=== PATIENT | male | born 1955 | race Caucasian/White ===

== ENCOUNTER 2017-07-29 09:48 | Inpatient (IN) | payer MEDICAID ==
[~2017-07-29] VITALS: Ht 167.6 cm; Wt 122.5 kg
[~2017-07-29 09:48] MED LIST: CITA40TA12 PO; LANS15CA60 PO; MULT-26 PO; NAPR220C PO; ONDA4TAB10 PO; VERA40TA PO
[2017-07-29 10:25] LABS: MEAN CORPUSCULAR HEMOGLOBIN 23.1 pg (27.5-34.5); MEAN CORPUSCULAR HGB CONC 33.1 g/dL (33.2-36.2); MEAN CORPUSCULAR VOLUME 69.6 fL (81-97); PLATELET COUNT 517 x10^3/uL (130-400); RED CELL DISTRIBUTION WIDTH 19.3 % (9.4-14.8)
[2017-07-29 10:28] LABS: INTERNATIONAL NORMALIZED RATIO 1.14 (0.93-1.1); PROTHROMBIN TIME 11.8 Seconds (9.6-11.5)
[2017-07-29 10:31] LABS: ALANINE AMINOTRANSFERASE 54 U/L (12-78); ALBUMIN 2.1 g/dL (3.4-5.0); ANION GAP 10 mmol/L (5-15); CALCIUM 7.3 mg/dL (8.5-10.1); CHLORIDE 99 mmol/L (98-107); CREATININE 2.47 mg/dL (0.7-1.3)
[2017-07-29 10:35] LABS: ALKALINE PHOSPHATASE 140 U/L (45-117); BILIRUBIN,TOTAL 0.4 mg/dL (0.2-1.0); TOTAL PROTEIN 8.5 g/dL (6.4-8.2)
[2017-07-29 11:17] LABS: BASOPHILS % (AUTO) 0 % (0-1); EOSINOPHILS # (AUTO) 0.12 x10^3/uL (0-0.4); EOSINOPHILS % (AUTO) 1 % (1-7); LYMPHOCYTES # (AUTO) 3.18 x10^3/uL (1-3.4); LYMPHOCYTES % (AUTO) 16 % (22-44); MD SCAN; MONOCYTES # (AUTO) 0.64 x10^3/uL (0.2-0.8); MONOCYTES % (AUTO) 3 % (2-9); NEUTROPHILS % (AUTO) 80 % (42-75)
[2017-07-29] MEDS ORDERED: VANCOMYCIN PER PHARMACY MC PRN (11:30)
[2017-07-29] MEDS ORDERED: SODIUM CHLORIDE 0.9% 1,000ML IVBOLUS ONE ×2 (11:30→12:00)
[2017-07-29] MEDS ORDERED: VANCOMYCIN 2,000 MG in SODIUM CHLORIDE 0.9% 500 ML IV ONE (12:00)
[2017-07-29] MEDS ORDERED: CLINDAMYCIN PMX 600MG/50ML 50 ML IV ONE (12:00)
[2017-07-29 12:58] LABS: TROPONIN I < 0.015 ng/mL (0.000-0.045)
[2017-07-29] MEDS ORDERED: PHARMACY MAY ADJ FOR RENAL FX MC PRN (13:30)
[2017-07-29] MEDS ORDERED: HYDROmorphone 2 MG/ML, 1ML IVPush PRN (13:30)
[2017-07-29] MEDS ORDERED: ACETAMINOPHEN 325 MG TABLET PO PRN (13:30)
[2017-07-29] MEDS ORDERED: DOCUSATE 100 MG CAPSULE PO PRN (13:30)
[2017-07-29] MEDS ORDERED: BISACODYL 10 MG SUPP PR PRN (13:30)
[2017-07-29] MEDS ORDERED: LABETALOL 5MG/ML, 20ML IVPush PRN (13:30)
[2017-07-29] MEDS ORDERED: hydrALAzine 20 MG/ML, 1ML IVPush PRN (13:30)
[2017-07-29] MEDS ORDERED: POLYETHYLENE GLYCOL 17 GM PACKET PO PRN (13:30)
[2017-07-29] MEDS ORDERED: ONDANSETRON 2MG/ML, 2ML IVPush PRN (13:30)
[2017-07-29 13:59] VITALS: BP 116/72
[2017-07-29 14:48] LABS: MICROSCOPIC NOT IND
[2017-07-29 14:50] LABS: CULTURE INDICATED? NO
[2017-07-29 14:55] LABS: HCT (SEDRATE) 25.8 % (39.2-51.8)
[2017-07-29 14:57] LABS: CREATININE,URINE RANDOM 43.5 mg/dL
[2017-07-29] MEDS: LINEZOLID PMX 600MG/300ML 300 ML IV SCH (15:59)
[2017-07-29] MEDS: POTASSIUM CHLORIDE 20 MEQ PACKET PO SCH (17:30)
[2017-07-29] MEDS: NICOTINE 14MG/24 HR PATCH.TD24 TD SCH (17:30)
[2017-07-29] MEDS: HEPARIN 5,000 UNITS/ML, 1ML SQ SCH (17:31)
[2017-07-29 19:07] VITALS: BP 94/55
[2017-07-29] MEDS: AMPICILLIN/SULBACTAM 3 GM in SODIUM CHLORIDE 0.9% 100 ML IV SCH (19:53)
[2017-07-29] MEDS: LACTATED RINGERS 1,000 ML IV SCH (20:49)
[2017-07-30 00:27] VITALS: BP 102/61
[2017-07-30] MEDS: HEPARIN 5,000 UNITS/ML, 1ML SQ SCH ×3 (01:35→16:36)
[2017-07-30] MEDS: AMPICILLIN/SULBACTAM 3 GM in SODIUM CHLORIDE 0.9% 100 ML IV SCH ×4 (01:35→22:28)
[2017-07-30] MEDS: LINEZOLID PMX 600MG/300ML 300 ML IV SCH ×2 (03:53→16:00)
[2017-07-30] MEDS: HYDROcodone/APAP 5/325 TABLET PO PRN ×4 (03:53→22:29)
[2017-07-30 05:18] LABS: BASOPHILS # (AUTO) 0.05 x10^3/uL (0-0.1); BASOPHILS % (AUTO) 0 % (0-1); EOSINOPHILS # (AUTO) 0.13 x10^3/uL (0-0.4); EOSINOPHILS % (AUTO) 1 % (1-7); LYMPHOCYTES # (AUTO) 0.59 x10^3/uL (1-3.4); LYMPHOCYTES % (AUTO) 5 % (22-44); MD NO; MEAN CORPUSCULAR HEMOGLOBIN 22.3 pg (27.5-34.5); MEAN CORPUSCULAR HGB CONC 32.2 g/dL (33.2-36.2); MEAN CORPUSCULAR VOLUME 69.2 fL (81-97); MEAN PLATELET VOLUME 7.8 fL (7.4-10.4); MONOCYTES # (AUTO) 0.66 x10^3/uL (0.2-0.8); MONOCYTES % (AUTO) 6 % (2-9); NEUTROPHILS # (AUTO) 10.38 x10^3/uL (1.8-6.8); NEUTROPHILS % (AUTO) 88 % (42-75); PLATELET COUNT 434 x10^3/uL (130-400); RED BLOOD COUNT 3.41 x10^6/uL (4.38-5.82); RED CELL DISTRIBUTION WIDTH 19.2 % (9.4-14.8)
[2017-07-30 05:26] LABS: ALBUMIN 1.6 g/dL (3.4-5.0); ANION GAP 6 mmol/L (5-15); CALCIUM 7.2 mg/dL (8.5-10.1); CHLORIDE 110 mmol/L (98-107)
[2017-07-30 05:29] LABS: ALANINE AMINOTRANSFERASE 41 U/L (12-78); ALKALINE PHOSPHATASE 134 U/L (45-117); BILIRUBIN,TOTAL 0.4 mg/dL (0.2-1.0); CREATININE 1.36 mg/dL (0.7-1.3); TOTAL PROTEIN 7.3 g/dL (6.4-8.2)
[2017-07-30 08:08] VITALS: BP 109/67
[2017-07-30 12:53] VITALS: BP 96/59
[2017-07-30] MEDS: LACTATED RINGERS 1,000 ML IV SCH (14:34)
[2017-07-30] MEDS: POTASSIUM CHLORIDE 20 MEQ PACKET PO SCH (16:36)
[2017-07-30] MEDS: NICOTINE 14MG/24 HR PATCH.TD24 TD SCH (16:37)
[2017-07-30 19:45] VITALS: BP 107/67
[2017-07-31 01:00] VITALS: BP 108/65
[2017-07-31] MEDS: HEPARIN 5,000 UNITS/ML, 1ML SQ SCH ×3 (01:26→17:30)
[2017-07-31] MEDS: LACTATED RINGERS 1,000 ML IV SCH ×2 (01:26→12:00)
[2017-07-31] MEDS: HYDROcodone/APAP 5/325 TABLET PO PRN ×2 (04:05→14:58)
[2017-07-31] MEDS: AMPICILLIN/SULBACTAM 3 GM in SODIUM CHLORIDE 0.9% 100 ML IV SCH ×3 (04:05→21:09)
[2017-07-31] MEDS: LINEZOLID PMX 600MG/300ML 300 ML IV SCH ×2 (04:34→17:35)
[2017-07-31 07:03] VITALS: BP 112/70
[2017-07-31] MEDS ORDERED: PHARMACY MAY ADJ FOR RENAL FX MC PRN (11:30)
[2017-07-31 11:49] LABS: BASOPHILS # (AUTO) 0.08 x10^3/uL (0-0.1); BASOPHILS % (AUTO) 1 % (0-1); EOSINOPHILS # (AUTO) 0.22 x10^3/uL (0-0.4); EOSINOPHILS % (AUTO) 2 % (1-7); LYMPHOCYTES # (AUTO) 0.76 x10^3/uL (1-3.4); LYMPHOCYTES % (AUTO) 8 % (22-44); MD NO; MEAN CORPUSCULAR HEMOGLOBIN 22.1 pg (27.5-34.5); MEAN CORPUSCULAR HGB CONC 31.9 g/dL (33.2-36.2); MEAN CORPUSCULAR VOLUME 69.3 fL (81-97); MONOCYTES # (AUTO) 0.53 x10^3/uL (0.2-0.8); MONOCYTES % (AUTO) 6 % (2-9); NEUTROPHILS # (AUTO) 8.11 x10^3/uL (1.8-6.8); NEUTROPHILS % (AUTO) 84 % (42-75); PLATELET COUNT 561 x10^3/uL (130-400); RED BLOOD COUNT 3.46 x10^6/uL (4.38-5.82); RED CELL DISTRIBUTION WIDTH 19.7 % (9.4-14.8)
[2017-07-31 11:58] LABS: CALCIUM 7.2 mg/dL (8.5-10.1); CHLORIDE 107 mmol/L (98-107)
[2017-07-31] MEDS ORDERED: PERMETHRIN CRM 5%, 60GM TP SCH (12:00)
[2017-07-31 12:04] LABS: ANION GAP 7 mmol/L (5-15); CREATININE 1.03 mg/dL (0.7-1.3)
[2017-07-31 12:05] LABS: ALANINE AMINOTRANSFERASE 34 U/L (12-78); ALBUMIN 1.6 g/dL (3.4-5.0); ALKALINE PHOSPHATASE 123 U/L (45-117); BILIRUBIN,TOTAL 0.5 mg/dL (0.2-1.0); TOTAL PROTEIN 7.6 g/dL (6.4-8.2)
[2017-07-31] MEDS: FOLIC ACID 1 MG TABLET PO SCH (12:51)
[2017-07-31] MEDS: MULTIVIT.W/IRON, MINERALS ORAL SOL PO SCH (12:51)
[2017-07-31] MEDS: THIAMINE 100MG TABLET PO SCH (12:51)
[2017-07-31 13:42] VITALS: BP 119/73
[2017-07-31] MEDS ORDERED: PIPERONYL BUTOXIDE/PYRETHRINS SHAMPOO TP SCH (16:30)
[2017-07-31] MEDS: NICOTINE 14MG/24 HR PATCH.TD24 TD SCH (17:30)
[2017-07-31 20:30] VITALS: BP 112/70
[2017-08-01] MEDS: HYDROcodone/APAP 5/325 TABLET PO PRN (01:18)
[2017-08-01] MEDS: HEPARIN 5,000 UNITS/ML, 1ML SQ SCH ×3 (01:18→17:29)
[2017-08-01 01:21] VITALS: BP 121/76
[2017-08-01] MEDS: AMPICILLIN/SULBACTAM 3 GM in SODIUM CHLORIDE 0.9% 100 ML IV SCH ×4 (03:49→23:55)
[2017-08-01] MEDS: LINEZOLID PMX 600MG/300ML 300 ML IV SCH ×2 (04:37→16:22)
[2017-08-01 05:03] LABS: BASOPHILS # (AUTO) 0.02 x10^3/uL (0-0.1); BASOPHILS % (AUTO) 0 % (0-1); EOSINOPHILS # (AUTO) 0.25 x10^3/uL (0-0.4); EOSINOPHILS % (AUTO) 2 % (1-7); LYMPHOCYTES # (AUTO) 0.93 x10^3/uL (1-3.4); LYMPHOCYTES % (AUTO) 9 % (22-44); MD NO; MEAN CORPUSCULAR HEMOGLOBIN 21.9 pg (27.5-34.5); MEAN CORPUSCULAR HGB CONC 31.4 g/dL (33.2-36.2); MEAN CORPUSCULAR VOLUME 69.7 fL (81-97); MEAN PLATELET VOLUME 7.3 fL (7.4-10.4); MONOCYTES % (AUTO) 5 % (2-9); NEUTROPHILS # (AUTO) 8.83 x10^3/uL (1.8-6.8); NEUTROPHILS % (AUTO) 84 % (42-75); PLATELET COUNT 600 x10^3/uL (130-400); RED BLOOD COUNT 3.57 x10^6/uL (4.38-5.82); RED CELL DISTRIBUTION WIDTH 19.2 % (9.4-14.8)
[2017-08-01 05:18] LABS: CHLORIDE 107 mmol/L (98-107)
[2017-08-01 05:34] LABS: % IRON SATURATION 11 % (20-55); ALANINE AMINOTRANSFERASE 27 U/L (12-78); ALBUMIN 1.6 g/dL (3.4-5.0); ALKALINE PHOSPHATASE 104 U/L (45-117); ANION GAP 9 mmol/L (5-15); BILIRUBIN,TOTAL 0.4 mg/dL (0.2-1.0); CALCIUM 7.3 mg/dL (8.5-10.1); CREATININE 0.91 mg/dL (0.7-1.3); IRON LEVEL 33 mcg/dL (65-175); TOTAL IRON BINDING CAPACITY 310 mcg/dL (250-450); TOTAL PROTEIN 7.6 g/dL (6.4-8.2); TRANSFERRIN 144 mg/dL (200-360)
[2017-08-01 08:13] VITALS: BP 124/79
[2017-08-01] MEDS: FOLIC ACID 1 MG TABLET PO SCH (09:09)
[2017-08-01] MEDS: THIAMINE 100MG TABLET PO SCH (09:09)
[2017-08-01] MEDS: MULTIVIT.W/IRON, MINERALS ORAL SOL PO SCH (09:10)
[2017-08-01] MEDS ORDERED: FUROSEMIDE 20 MG/2 ML IV ONE (12:00)
[2017-08-01] MEDS ORDERED: IBUPROFEN 200 MG TABLET PO PRN (12:00)
[2017-08-01] MEDS: FERROUS SULFATE 325 MG TABLET PO SCH ×2 (12:33→23:55)
[2017-08-01 13:36] VITALS: BP 127/83
[2017-08-01 17:02] LABS: OCCULT BLOOD NEGATIVE (NEGATIVE)
[2017-08-01] MEDS: NICOTINE 14MG/24 HR PATCH.TD24 TD SCH (17:29)
[2017-08-01 19:29] VITALS: BP 132/75
[2017-08-02 00:41] VITALS: BP 139/84
[2017-08-02] MEDS: HEPARIN 5,000 UNITS/ML, 1ML SQ SCH ×3 (00:50→16:39)
[2017-08-02] MEDS: HYDROcodone/APAP 5/325 TABLET PO PRN (00:50)
[2017-08-02] MEDS: LINEZOLID PMX 600MG/300ML 300 ML IV SCH ×2 (04:40→16:39)
[2017-08-02 05:49] LABS: BASOPHILS # (AUTO) 0.04 x10^3/uL (0-0.1); BASOPHILS % (AUTO) 0 % (0-1); EOSINOPHILS # (AUTO) 0.27 x10^3/uL (0-0.4); EOSINOPHILS % (AUTO) 3 % (1-7); LYMPHOCYTES # (AUTO) 0.73 x10^3/uL (1-3.4); LYMPHOCYTES % (AUTO) 8 % (22-44); MD NO; MEAN CORPUSCULAR HEMOGLOBIN 22.1 pg (27.5-34.5); MEAN CORPUSCULAR HGB CONC 31.7 g/dL (33.2-36.2); MEAN CORPUSCULAR VOLUME 69.9 fL (81-97); MEAN PLATELET VOLUME 6.8 fL (7.4-10.4); MONOCYTES # (AUTO) 0.44 x10^3/uL (0.2-0.8); MONOCYTES % (AUTO) 5 % (2-9); NEUTROPHILS # (AUTO) 7.29 x10^3/uL (1.8-6.8); NEUTROPHILS % (AUTO) 83 % (42-75); PLATELET COUNT 609 x10^3/uL (130-400); RED BLOOD COUNT 3.41 x10^6/uL (4.38-5.82); RED CELL DISTRIBUTION WIDTH 19.3 % (9.4-14.8)
[2017-08-02 05:54] LABS: ANION GAP 4 mmol/L (5-15); CALCIUM 7.5 mg/dL (8.5-10.1); CHLORIDE 110 mmol/L (98-107); CREATININE 0.85 mg/dL (0.7-1.3)
[2017-08-02] MEDS: AMPICILLIN/SULBACTAM 3 GM in SODIUM CHLORIDE 0.9% 100 ML IV SCH ×3 (06:46→18:59)
[2017-08-02 07:09] VITALS: BP 124/81
[2017-08-02 07:18] LABS: HCT (SEDRATE) 23.8 % (39.2-51.8)
[2017-08-02] MEDS: MULTIVIT.W/IRON, MINERALS ORAL SOL PO SCH (09:35)
[2017-08-02] MEDS: FERROUS SULFATE 325 MG TABLET PO SCH ×2 (09:36→20:24)
[2017-08-02] MEDS: THIAMINE 100MG TABLET PO SCH (09:36)
[2017-08-02] MEDS: FOLIC ACID 1 MG TABLET PO SCH (09:36)
[2017-08-02] MEDS: GABAPENTIN 100 MG CAPSULE PO SCH ×3 (13:04→20:24)
[2017-08-02 13:23] VITALS: BP 140/87
[2017-08-02] MEDS: NICOTINE 14MG/24 HR PATCH.TD24 TD SCH (18:05)
[2017-08-02 20:21] VITALS: BP 145/87
[2017-08-03] MEDS: HEPARIN 5,000 UNITS/ML, 1ML SQ SCH ×3 (02:11→16:27)
[2017-08-03] MEDS: AMPICILLIN/SULBACTAM 3 GM in SODIUM CHLORIDE 0.9% 100 ML IV SCH ×4 (02:11→20:13)
[2017-08-03 02:14] VITALS: BP 147/92
[2017-08-03] MEDS: LINEZOLID PMX 600MG/300ML 300 ML IV SCH ×2 (04:22→16:27)
[2017-08-03 05:47] LABS: CHLORIDE 110 mmol/L (98-107)
[2017-08-03 05:55] LABS: BASOPHILS # (AUTO) 0.05 x10^3/uL (0-0.1); BASOPHILS % (AUTO) 1 % (0-1); EOSINOPHILS # (AUTO) 0.11 x10^3/uL (0-0.4); EOSINOPHILS % (AUTO) 1 % (1-7); LYMPHOCYTES # (AUTO) 0.78 x10^3/uL (1-3.4); LYMPHOCYTES % (AUTO) 8 % (22-44); MD NO; MEAN CORPUSCULAR HEMOGLOBIN 21.9 pg (27.5-34.5); MEAN CORPUSCULAR HGB CONC 31.5 g/dL (33.2-36.2); MEAN CORPUSCULAR VOLUME 69.5 fL (81-97); MEAN PLATELET VOLUME 6.9 fL (7.4-10.4); MONOCYTES # (AUTO) 0.33 x10^3/uL (0.2-0.8); MONOCYTES % (AUTO) 4 % (2-9); NEUTROPHILS # (AUTO) 7.99 x10^3/uL (1.8-6.8); NEUTROPHILS % (AUTO) 86 % (42-75); PLATELET COUNT 612 x10^3/uL (130-400); RED CELL DISTRIBUTION WIDTH 19.3 % (9.4-14.8)
[2017-08-03 05:57] LABS: ANION GAP 6 mmol/L (5-15); CALCIUM 7.4 mg/dL (8.5-10.1); CREATININE 0.79 mg/dL (0.7-1.3)
[2017-08-03 08:15] VITALS: BP 130/76
[2017-08-03] MEDS: THIAMINE 100MG TABLET PO SCH (08:35)
[2017-08-03] MEDS: FERROUS SULFATE 325 MG TABLET PO SCH ×2 (08:35→20:13)
[2017-08-03] MEDS: FOLIC ACID 1 MG TABLET PO SCH (08:35)
[2017-08-03] MEDS: MULTIVIT.W/IRON, MINERALS ORAL SOL PO SCH (08:35)
[2017-08-03] MEDS: GABAPENTIN 100 MG CAPSULE PO SCH ×3 (08:35→20:13)
[2017-08-03] MEDS ORDERED: DIPHENHYDRAMINE 25 MG CAPSULE PO PRN (13:30)
[2017-08-03 13:46] VITALS: BP 150/87
[2017-08-03] MEDS: NICOTINE 14MG/24 HR PATCH.TD24 TD SCH (16:27)
[2017-08-03 20:08] VITALS: BP 137/87
[2017-08-04] MEDS: HEPARIN 5,000 UNITS/ML, 1ML SQ SCH ×3 (02:33→16:46)
[2017-08-04] MEDS: AMPICILLIN/SULBACTAM 3 GM in SODIUM CHLORIDE 0.9% 100 ML IV SCH ×4 (02:33→21:15)
[2017-08-04 02:38] VITALS: BP 162/91
[2017-08-04] MEDS: HYDROcodone/APAP 5/325 TABLET PO PRN (02:43)
[2017-08-04] MEDS: LINEZOLID PMX 600MG/300ML 300 ML IV SCH ×2 (04:48→16:00)
[2017-08-04 07:39] VITALS: BP 130/83
[2017-08-04] MEDS: MULTIVIT.W/IRON, MINERALS ORAL SOL PO SCH (08:48)
[2017-08-04] MEDS: FOLIC ACID 1 MG TABLET PO SCH (08:49)
[2017-08-04] MEDS: FERROUS SULFATE 325 MG TABLET PO SCH ×2 (08:49→21:15)
[2017-08-04] MEDS: GABAPENTIN 100 MG CAPSULE PO SCH ×3 (08:49→21:15)
[2017-08-04] MEDS: LISINOPRIL 10 MG TABLET PO SCH (08:49)
[2017-08-04] MEDS: THIAMINE 100MG TABLET PO SCH (08:49)
[2017-08-04 09:12] VITALS: BP 146/72
[2017-08-04 13:52] VITALS: BP 152/90
[2017-08-04] MEDS: NICOTINE 14MG/24 HR PATCH.TD24 TD SCH (16:46)
[2017-08-04 21:17] VITALS: BP 148/91
[2017-08-05 02:17] VITALS: BP 138/80
[2017-08-05] MEDS: AMPICILLIN/SULBACTAM 3 GM in SODIUM CHLORIDE 0.9% 100 ML IV SCH ×3 (02:19→14:48)
[2017-08-05] MEDS: HEPARIN 5,000 UNITS/ML, 1ML SQ SCH ×3 (02:19→17:00)
[2017-08-05] MEDS: LINEZOLID PMX 600MG/300ML 300 ML IV SCH ×2 (04:08→16:00)
[2017-08-05 07:48] VITALS: BP 150/84
[2017-08-05] MEDS: MULTIVIT.W/IRON, MINERALS ORAL SOL PO SCH (08:47)
[2017-08-05] MEDS: FOLIC ACID 1 MG TABLET PO SCH (08:48)
[2017-08-05] MEDS: LISINOPRIL 10 MG TABLET PO SCH (08:48)
[2017-08-05] MEDS: THIAMINE 100MG TABLET PO SCH (08:48)
[2017-08-05] MEDS: FERROUS SULFATE 325 MG TABLET PO SCH (08:48)
[2017-08-05] MEDS: GABAPENTIN 100 MG CAPSULE PO SCH ×2 (08:51→16:51)
[2017-08-05] MEDS ORDERED: FOLI-17 PO (12:36)
[2017-08-05] MEDS ORDERED: Multivit.w/Iron, Minerals PO (12:36)
[2017-08-05] MEDS ORDERED: GABA-826 PO (12:36)
[2017-08-05] MEDS ORDERED: THIA100T6 PO (12:36)
[2017-08-05] MEDS ORDERED: LISI-167 PO (12:36)
[2017-08-05] MEDS ORDERED: FERR-51 PO (12:36)
[2017-08-05] MEDS ORDERED: IBUP-1484 PO (12:36)
[2017-08-05] MEDS ORDERED: CEPH-368 PO (12:41)
[2017-08-05 14:14] VITALS: BP_SYST 151; BP_SYST 179; BP_DIAS 75; BP_DIAS 81
[2017-08-05] MEDS ORDERED: PNEUMOCOCCAL 23 VACCINE IM-VACC ONE (15:30)
[2017-08-05] MEDS: NICOTINE 14MG/24 HR PATCH.TD24 TD SCH (17:08)
== END 2017-08-05 17:22 | DRG 871 ==
LOC: ED 11:49 → EDIP 11:50 → ED 12:23 → 4EST 13:42
PROVIDERS: ADMIT Internal Medicine; ATTEND Hospitalist
DX: A41.9 Sepsis, unspecified organism (principal); E43 Unspecified severe protein-calorie malnutrition; J96.00 Acute respiratory failure, unspecified whether with hypoxia or hypercapnia; N17.0 Acute kidney failure with tubular necrosis; I11.0 Hypertensive heart disease with heart failure; E87.1 Hypo-osmolality and hyponatremia; G62.9 Polyneuropathy, unspecified; I50.9 Heart failure, unspecified; K72.90 Hepatic failure, unspecified without coma; B85.2 Pediculosis, unspecified; L03.116 Cellulitis of left lower limb; Z68.41 Body mass index [BMI] 40.0-44.9, adult; D50.9 Iron deficiency anemia, unspecified; F10.10 Alcohol abuse, uncomplicated; E87.6 Hypokalemia; F17.210 Nicotine dependence, cigarettes, uncomplicated; I87.2 Venous insufficiency (chronic) (peripheral); R79.89 Other specified abnormal findings of blood chemistry; K44.9 Diaphragmatic hernia without obstruction or gangrene; M19.071 Primary osteoarthritis, right ankle and foot; M77.30 Calcaneal spur, unspecified foot; R65.20 Severe sepsis without septic shock; Z59.0 Homelessness; Z83.3 Family history of diabetes mellitus; Z91.5 Personal history of self-harm
CPT/HCPCS: 36415; 71045; 80048; 80053; 81003; 82272; 82436; 82570; 82728; 83540; 83550; 83605; 83880; 84133; 84300; 84466; 84484; 85025; 85610; 85651; 85730; 86140; 87040; 90732; 93005; 93306; 93922; 96365; J0295; J1644; J2020; J3370; J1940; J7030; J7040; J7120

== ENCOUNTER 2018-03-06 22:28 | Emergency (ER) | payer MEDICAID ==
[~2018-03-06] VITALS: Ht 167.6 cm; Wt 100.0 kg
[~2018-03-06 22:28] MED LIST changes: +CEPH-368 PO; +FERR-51 PO; +FOLI-17 PO; +GABA-826 PO; +IBUP-1484 PO; +LISI-167 PO; +Multivit.w/Iron, Minerals PO; +THIA100T67 PO
[2018-03-07 00:19] VITALS: BP 116/72
== END 2018-03-07 02:10 | disposition home or self-care (01) ==
LOC: ED 22:34
DX: S00.211A Abrasion of right eyelid and periocular area, initial encounter (principal); L03.115 Cellulitis of right lower limb; L03.116 Cellulitis of left lower limb; I10 Essential (primary) hypertension; M25.512 Pain in left shoulder; Z59.0 Homelessness; W06.XXXA Fall from bed, initial encounter; Y93.84 Activity, sleeping; Y92.89 Other specified places as the place of occurrence of the external cause; Y99.8 Other external cause status
CPT/HCPCS: 99283

== ENCOUNTER 2018-05-01 15:28 | Emergency (ER) | payer MEDICAID ==
[~2018-05-01] VITALS: Ht 167.6 cm; Wt 104.7 kg
[2018-05-01 17:12] VITALS: BP 94/56
== END 2018-05-01 20:04 | disposition home or self-care (01) ==
LOC: ED 17:57
DX: F10.220 Alcohol dependence with intoxication, uncomplicated (principal); I87.2 Venous insufficiency (chronic) (peripheral); R60.0 Localized edema; I10 Essential (primary) hypertension
CPT/HCPCS: 99283

== ENCOUNTER 2018-08-19 19:48 | Emergency (ER) | payer MEDICAID ==
[~2018-08-19] VITALS: Ht 172.7 cm; Wt 100.0 kg
[~2018-08-19 19:48] MED LIST changes: -NAPR220C PO; +NAPR220C62 PO
[2018-08-19 19:55] VITALS: BP 134/79
--- NOTE | 2018-08-19 22:16 | NUR ---
PT SLEEPING SOUNDLY, NO COMPLAINTS AT THIS TIME
== END 2018-08-19 23:40 | disposition home or self-care (01) ==
LOC: ED 23:34
DX: F10.120 Alcohol abuse with intoxication, uncomplicated (principal); Z72.9 Problem related to lifestyle, unspecified
CPT/HCPCS: 36415; 80307; 99283

== ENCOUNTER 2018-09-11 14:33 | Emergency (ER) | payer MEDICAID ==
[~2018-09-11] VITALS: Ht 167.6 cm; Wt 120.0 kg
--- NOTE | 2018-09-11 14:55 | NUR ---
MED REQUEST SENT TO PHARMACY FOR TUBE OF BACITRACIN
[2018-09-11] MEDS ORDERED: BACITRACIN OINT 500U/GM, 15 GM TP ONE (15:00)
--- NOTE | 2018-09-11 15:22 | NUR ---
WOUNDS TO R FINGERS DRESSED WITH BACITRACIN AND GUAZE DRESSING. PT FOR RECHECK.
[2018-09-11 16:15] VITALS: BP 125/68
== END 2018-09-11 16:17 | disposition home or self-care (01) ==
LOC: ED 15:00
DX: L20.9 Atopic dermatitis, unspecified (principal); I10 Essential (primary) hypertension; Z48.01 Encounter for change or removal of surgical wound dressing; Z72.9 Problem related to lifestyle, unspecified
CPT/HCPCS: 99283

== ENCOUNTER 2020-03-30 09:28 | Emergency (ER) | payer MEDICAID ==
[~2020-03-30] VITALS: Ht 170.2 cm; Wt 109.0 kg
[~2020-03-30 09:28] MED LIST changes: -IBUP-1484 PO; +IBUP-1902 PO
[2020-03-30] MEDS ORDERED: IBUPROFEN 800 MG TABLET ONE (10:08)
[2020-03-30] MEDS ORDERED: IBUPROFEN 800 MG TABLET PO ONE (10:30)
[2020-03-30 10:34] LABS: MEAN CORPUSCULAR HEMOGLOBIN 18.2 pg (27.5-34.5); MEAN PLATELET VOLUME 8.6 fL (7.4-10.4); PLATELET COUNT 306 x10^3/uL (130-400); RED BLOOD COUNT 4.34 x10^6/uL (4.38-5.82); RED CELL DISTRIBUTION WIDTH 19.7 % (9.4-14.8)
[2020-03-30 10:52] LABS: CHLORIDE 108 mmol/L (98-107)
[2020-03-30 10:53] LABS: ALANINE AMINOTRANSFERASE 20 U/L (12-78); ALBUMIN 2.4 g/dL (3.4-5.0); ALKALINE PHOSPHATASE 69 U/L (45-117); ANION GAP 10 mmol/L (5-15); BILIRUBIN,TOTAL 0.6 mg/dL (0.2-1.0); CALCIUM 7.9 mg/dL (8.5-10.1); CREATININE 1.15 mg/dL (0.7-1.3); TOTAL PROTEIN 8.4 g/dL (6.4-8.2)
[2020-03-30] MEDS ORDERED: BAMLANIVIMAB 700 MG in SODIUM CHLORIDE 0.9% 180 ML IV ONE (11:00)
[2020-03-30 11:02] LABS: MD YES; MEAN CORPUSCULAR HGB CONC 29.7 g/dL (33.2-36.2)
[2020-03-30 11:24] LABS: BAND#(MANUAL) 1.23 x10^3/uL; BANDS%(MANUAL) 9 % (0-7); LYMPH#(MANUAL) 0.41 x10^3/uL (1-3.4); LYMPHS% (MANUAL) 3 % (22-44); MONOS#(MANUAL) 0.14 x10^3/uL (0.3-2.7); MONOS% (MANUAL) 1 % (2-9); SEG#(MANUAL) 11.92 x10^3/uL (1.8-6.8); SEGS% (MANUAL) 87 % (42-75)
[2020-03-30 11:26] LABS: ANISOCYTOSIS 1+; MICROCYTOSIS 2+; OVALOCYTES 1+
[2020-03-30 11:27] LABS: <PLATELET ESTIMATE> ADEQUATE; <PLT MORPHOLOGY> NORMAL PLT MORPH; HYPOCHROMIA 1+
[2020-03-30] MEDS ORDERED: FILTER 0.22 MICRON IV ONE (11:30)
[2020-03-30] MEDS ORDERED: DOXYCYCLINE 100MG TABLET PO ONE (12:00)
[2020-03-30] MEDS ORDERED: DOXYCYCLINE 100MG TABLET ONE (13:05)
[2020-03-30 14:49] VITALS: BP 93/61
== END 2020-03-30 15:03 | disposition home or self-care (01) ==
LOC: ED 11:03
DX: U07.1 COVID-19 (principal); J15.9 Unspecified bacterial pneumonia; R06.02 Shortness of breath; R50.9 Fever, unspecified; R05 Cough; M79.10 Myalgia, unspecified site; I10 Essential (primary) hypertension; F17.200 Nicotine dependence, unspecified, uncomplicated
CPT/HCPCS: 36415; 71045; 80053; 83880; 85025; 93005; 99285; J7050; M0239; Q0239; 96365